=== PATIENT | female | born 1975 | race Caucasian/White ===

== ENCOUNTER 2023-05-04 07:44 | Emergency (ER) | payer OTHER ==
[~2023-05-04] VITALS: Ht 165.1 cm; Wt 70.3 kg
[2023-05-04] MEDS ORDERED: NS 1,000 ML IV ONE (08:10)
[2023-05-04] MEDS ORDERED: KETOROLAC 30 MG/ML 1ML VIAL IV ONE (08:10)
[2023-05-04] MEDS ORDERED: AMPICILLIN SOD/SULBACTAM SOD 3 GM in D5W MINI-BAG PLUS 100 ML IV ONE (08:10)
[2023-05-04 09:11] LABS: BASO # 0.1 10^3/uL (0.0-0.2); BASO % 1.1 % (0.0-1.0); EOS # 0.7 10^3/uL (0.0-0.5); EOS % 6.3 % (0.0-3.0); HEMOGLOBIN 13.9 g/dl (12.0-15.5); LYMPH # 4.3 10^3/uL (1.5-5.0); LYMPH % 36.9 % (24.0-44.0); MEAN CORPUSCULAR HEMOGLOBIN 29.7 pg (27.0-33.0); MEAN CORPUSCULAR HGB CONC 33.1 g/dl (32.0-36.5); MEAN CORPUSCULAR VOLUME 89.7 fl (80.0-96.0); MONO # 0.7 10^3/uL (0.0-0.8); MONO % 6.2 % (2.0-8.0); NEUTROPHILS # 5.7 10^3/uL (1.5-8.5); NEUTROPHILS % 49.2 % (36.0-66.0); PLATELET COUNT, AUTOMATED 310 10^3/uL (150-450); RED BLOOD COUNT 4.68 10^6/uL (4.00-5.40); WHITE BLOOD COUNT 11.6 10^3/uL (4.0-10.0)
[2023-05-04] MEDS ORDERED: ISOVUE-370 76% 100ML VIAL As Ordered ONE (09:48)
[2023-05-04 10:06] LABS: ERYTHROCYTE SEDIMENTATION RATE 9 mm/hr (0-20)
[2023-05-04] MEDS ORDERED: MORPHINE 4 MG/ML 1ML VIAL IV ONE (10:30)
[2023-05-04] MEDS ORDERED: ONDANSETRON 4MG 2ML VIAL IV ONE (10:30)
[2023-05-04 11:38] VITALS: O2SAT 97
[2023-05-04] MEDS ORDERED: MORPHINE 2 MG/ML 1ML VIAL IV ONE (11:40)
[2023-05-04] MEDS ORDERED: dexAMETHasone 20MG/5ML VIAL IV ONE (12:55)
[2023-05-04] MEDS ORDERED: AMOX875T2 PO (12:58)
[2023-05-04 13:14] VITALS: BP 125/65; TEMP 97.4
== END 2023-05-04 13:15 | disposition home or self-care (01) ==
LOC: M ED 07:44
DX: K04.7 Periapical abscess without sinus (principal); L03.211 Cellulitis of face; Z88.1 Allergy status to other antibiotic agents
CPT/HCPCS: 70491; 80047; 84702; 85025; 85652; 86140; 96365; 96375; 96376; 99284; J0295; J1100; J1885; J2405; Q9967